=== PATIENT | female | born 1960 | race Caucasian/White ===

== ENCOUNTER 2020-05-21 02:11 | Outpatient (CLI) | payer BC, SELFPAY ==
[2020-05-21 18:17] LABS: SARS-CoV-2 RNA PCR Negative
== END 2020-05-21 02:12 | disposition home or self-care (01) ==
LOC: ANHCOVIDDT 02:11
PROVIDERS: PCP Internal Medicine; Visit Provider Urology
DX: Z01.812 Encounter for preprocedural laboratory examination (principal); Z20.828 Contact with and (suspected) exposure to other viral communicable diseases
CPT/HCPCS: 87635; C9803; U0003

== ENCOUNTER 2020-05-23 03:40 | Day surgery (SDC) | payer BC, SELFPAY ==
[2020-05-08 14:10] VITALS: BMI 22.4
[2020-05-23] VITALS (7 sets, daily range): BP systolic 97–121; BP diastolic 61–77; PULSE 67–82; RESP 20–22; TEMP 36.4–36.5; O2SAT 99–100
--- NOTE | ~2020-05-23 | XR_ITS ---
EXAMINATION: XR retrograde pyelo w/stent RT EXAM DATE: 05/23/2020 08:23 INDICATION: Right-sided retrograde pyelogram, obstructive nephropathy. TECHNIQUE: Fluoroscopy used during XR retrograde pyelo w/stent RT performed by Dr. Jose L Lamar MD. The DAP for this procedure was 0.8 mGym2. Cine run(s) available for review. FINDINGS: The right ureter was cannulated, injected. There is severe right-sided hydroureteronephros is, to the ureterovesicular junction. There is a bend, kinking of the right ureter proximally Correl ate with procedure note. IMPRESSION: Severe right-sided hydroureteronephrosis to the UVJ. 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 Reviewed, dictated and finalized at location B.
[2020-05-23] MEDS: LACTATED RINGERS 1,000 ML 30 ML IV CONT ×2 (06:35→08:24)
--- NOTE | 2020-05-23 06:47 | WPDHPUPDATE1 ---
History and Physical Update Update Date/Time: 05/23/20 06:47 History and Physical has been reviewed, including an updated exam of the patient. There are NO changes in the patient's condition. Risks, benefits, and alternatives have been discussed and questions answered. Patient agrees to proceed with procedure.
--- NOTE | 2020-05-23 07:00 | P.PNAN_ITS ---
Anes - Initial Pre Proc Eval Procedure: Operation Date: 05/23/20 07:30 Proposed Procedures p Cystoscopy, Right Retrograde Pyelogram, Right Ureteroscopy, - Jose L Lamar MD s Trans Urethral Resection Bladder Tumor - Jose L Lamar MD Date/Time: 05/23/20 07:00 Surgeon: Jose L Lamar MD Pre Op Diagnosis: hydronephrosis Patient Data Age: 60 Gender: F Height: 5 ft 1 in Weight: 53.98 kg Allergies Allergy/AdvReac Type Severity Reaction Status Date / Time No Known Allergies Allergy Verified 05/08/20 14:10 Home Medications Medication Instructions Recorded Confirmed Type amlodipine 2.5 mg PO DAILY 05/08/20 05/08/20 History tramadol 50 mg PO TID PRN 05/08/20 05/08/20 History Patient hx anesthesia problems: none Family hx anesthesia problems: none [facility] Past Medical History Medical History Bladder tumor Hydronephrosis Smoker Social History Social History Years smoked: 20 Smoking status: Current every day smoker Tobacco type: cigarettes Additional smoking assessment comments: STATES USED TO SMOKE 1 PPD, NOW DOWN TO 7 CIGARETTES PER DAY Spiritual care concerns: No Anes - Eval Final PreProcedure Day of Procedure 05/23/20 07:00 Patient weight: normal Heart: regular rate and rhythm Lungs: clear to auscultation Airway: Mallampati scale class II Neurological: alert and oriented Last oral intake: >/= 8 hours ASA classification: II Emergent: no Anesthetic plan: proceed Anesthesia type and monitoring: general LMA and standard monitoring Informed Consent: The patient's anesthetic plan and its attendant risks and benefits were discussed with the patient/family/POA. Questions were solicited and answers provided to the satisfaction of the patient/family/POA.
[2020-05-23] MEDS: ceFAZolin 2 GM/D5W 50 ML 2 GM/50 ML BAG IVPB (07:16)
[2020-05-23] MEDS: LIDOCAINE HCL 2% GEL UROJET 10 ML PKG MUCOUS MEM (07:20)
--- NOTE | 2020-05-23 08:29 | PM.PROC ---
Procedure Note - Detailed Date of procedure: 05/23/20 Pre-op diagnosis: hydronephrosis Post-op diagnosis: other (Large, sessile bladder neoplasm / right hydronephrosis due to bladder neoplasm) Procedure performed: 1. Large TURBT ( 6-7 cm). 2. Cystoscopy with right retrograde pyelography. 3. Right ureteroscopy. 4. Right ureteral stent placement Description of procedure: this patient is brought to the operative suite where she has prepped and draped in routine sterile fashion while in a dorsal lithotomy position after the uneventful induction of a general LMA anesthetic. Cystoscopy is undertaken with a 21 F rigid cystoscope. Immediately identified a large sessile neoplasm overlying the right posterior lateral bladder wall and overlying the right blaze trigone. This extends to the bladder neck and probably into the proximal urethra. The left blaze trigone and left ureteral orifice are identified and spared throughout this procedure. The remainder of the bladder as without apparent neoplasm. First performed a fairly aggressive resection of this neoplasm in order to identify the right ureteral orifice. I sent specimen separate from both the bladder tumor and bladder tumor base. After identifying the right ureteral orifice and performed retrograde pyelogram which shows some tortuosity of the ureter but without apparent filling defects. Right ureteral re-endoscopy was undertaken with a 7.5 F digital ureteral scope. There is no apparent neoplasm of the collecting system or ureter. Performed retrograde pyelogram to ensure that I inspected all calices. A 6 F double-J ureteral stent was in position with the proximal coil in renal pelvis and distal coil bladder. Place a stent in anticipation of a need for neoadjuvant chemotherapy. Scopes and wires were removed. The patient tolerated procedure well was taken recovery room in good condition. Anesthesia: GLMA Surgeon: Jose L Lamar MD Police Liaison Officer: None Estimated blood loss (mL): 5 Drains: Yes (6F right ureteral stent) Packing: No Pathology: yes Complications: No immediate complications Condition: stable Disposition: PACU
== END 2020-05-23 10:08 | disposition home or self-care (01) ==
PROVIDERS: PCP Internal Medicine; Visit Provider Urology
PROC: (CPT 52352; principal; 2020-05-23 07:30)
PROC: 0TBB8ZZ Excision of Bladder, Via Natural or Artificial Opening Endoscopic (ICD-10-PCS; CPT 52240; 2020-05-23 07:30)
DX: C67.8 Malignant neoplasm of overlapping sites of bladder (principal); N13.39 Other hydronephrosis; F17.210 Nicotine dependence, cigarettes, uncomplicated
CPT/HCPCS: 52240; 74420; 88305; 88342; A9270; C1758; C1769; C2617; J0690; J1100; J2250; J2405; J2704; J3010; J7120; Q9966

== ENCOUNTER 2020-12-24 08:04 | Outpatient (CLI) | payer BC, SELFPAY | END 2020-12-24 08:05 | disposition home or self-care (01) | LOC: ANHAUDIO 08:05 | PROVIDERS: PCP Internal Medicine; Visit Provider Nurse Practitioner Family | DX: H90.3 Sensorineural hearing loss, bilateral (principal); R42 Dizziness and giddiness | CPT/HCPCS: 92537; 92540; 92546; 92557; 92567 ==

== ENCOUNTER 2021-05-22 09:00 | Outpatient (RCR) | payer BC, SELFPAY ==
--- NOTE | 2021-05-01 11:09 | PTOPEVAL ---
INITIAL PHYSICAL THERAPY EVALUATION and PLAN OF CARE Thank you for referring Cynthia Rivas to [facility].? Cynthia is scheduled to be seen for physical therapy? 1x/week for 4 weeks. Please review, sign, date and return this plan of care KHRIS. I agree with and certify that the following plan of care is medically necessary. Referring Physician Date Admitting Provider: Attending Provider: Sam Weber MD Referring Provider: *PT Outpatient Evaluation Start: 05/01/21 10:06 Freq: Status: Active Protocol: Document 05/01/21 10:06 MARLON (Rec: 05/01/21 11:09 MARLON [id number]) Therapy Assessment Status Assessment Status Assessment Status Evaluation Outpatient Past Medical History Past Medical History Source of Past Medical History Recalled from Previous Visit, Confirmed with Patient/Family Neurological History Hx Neurological Disorders No Significant History Cardiovascular History Hx Cardiac Disorders No Significant History Respiratory History Hx Respiratory Disorders No Significant History Gastrointestinal History Hx Gastrointestinal Disorders No Significant History Genitourinary History Hx Bladder Surgery Yes: October 2020-neobladder - due to bladder cancer Hx Other Genitourinary Disorders Yes: HYDRONEPHROSIS Musculoskeletal History Hx Musculoskeletal Disorders No Significant History Hematological History Hx Hematological Disorders No Significant History Endocrine History Hx Endocrine Disorders No Significant History HEENT History Hx HEENT Disorders No Significant History Integumentary History Hx Skin Disorders No Significant History Reproductive History Hx Post Menopausal Yes Hx Tubal Ligation Yes Psychosocial History Hx Psychiatric Disorders No Significant History Anesthesia History Hx Anesthesia Reactions No Significant History Other History Hx Cancer Yes: bladder Hx Other Medical Conditions Yes: past history of Raynaud's - denies present now Evaluation Information Problem Diagnosis Stress incontinence Onset December 2020 Subjective Information Cynthia reports urinary leakage Query Text:As Reported By Patient/ throughout the day and night. Family Sometimes feels the leakage, other times she doesn't. Wears pads during the day, Depends at night. Doesn't feel urge during the night - just has the leaking - wet Depends upon waking. Sometimes during the day can feel urge to go the bat
--- NOTE | 2021-05-29 08:02 | PCPTNOTE ---
Cynthia cancelled today's appointment - something has come up. This was her re-evaluation appointment. Will wait to see if she reschedules this appointment.
--- NOTE | 2021-06-10 08:08 | PCPTNOTE ---
PHYSICAL THERAPY DISCHARGE SUMMARY Admitting Provider: Attending Provider: Sam Weber MD Patient:Cynthia Rivas Date of :1960 Cynthia has not returned for any further treatments since 05/22/2021, therefore she will be discharged at this time. Cynthia?s initial visit was on 05/01/2021 10:00 and she had a total of 4 visits. Cynthia called to cancel her last visit which was her re-evaluation appointment. She has not called to reschedule this appointment. The goals have been partially met. When last seen 05/22/2021, Cynthia stated that her urinary leakage was a little better during the day and some nights were better. She was using less pads. She was able to perform the pelvic floor strengthening exercises correctly and was educated about urge strategies. Thank you for referring Cynthia to [facility]. Please review, sign, date and return this discharge summary KHRIS. I have been updated about Cynthia's current status and I agree with discharge from the above service at this time. Referring Physician Date
== END 2021-06-10 15:46 | disposition home or self-care (01) ==
LOC: ANHPT 09:00
PROVIDERS: PCP Internal Medicine; Visit Provider Urology
DX: N39.3 Stress incontinence (female) (male) (principal)
CPT/HCPCS: 97110; 97161